=== PATIENT | female | born 1970 | race Two or more races ===

== ENCOUNTER 2024-06-13 16:30 | Outpatient (RCR) | payer MEDICAID, SELFPAY ==
--- NOTE | 2024-05-27 09:14 | PTNOTE_ITS ---
PT OP Initial Eval Patient Information Outpatient Physical Therapy Treatment Date: 05/27/24 Visit Reasons: low back pain Medical Diagnosis: M54.5 M54.15 Treatment Dx #1: LBP with radiculopathy Start of Care: 05/27/24 Date of Onset: 10/2023 Smoking Status Smoking Status: Never smoker Initial Assessment Subjective: Pt is 53 yr old female who reports onset of LBP that runs to the L LE after colonoscopy in October. Increased pain with bending and getting up, lifting and at night in bed. She does HH chores with rest breaks every 30 mins and pain. 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 Trunk ArOM: ? B SB 50% of normal with pain to the L ? Extension: 20% with pain around L4-5, L5-S1 ? Flexion: 10 from floor with LBP ? B rotation: 60% with pain ? TTP: moderate paraspinals L5-S1 ? Neuro: L SLR: positive Assessment: ? Pt presents with trunk flexion sensitivity and overlying myofascial pain ? and TTP around L5-S1 consistent with ? lower lumbar disc bulge(s) with L LE radiculopathy. Pt requires skilled therapy in order to decrease ? pain and improve sitting/standing tolerance and has fair rehab potential. Eval ?followed by HEP printout.Pt may benefit from further diagnostic imaging such as MRI of L/S. Short Term and [employer] Goals ? 1. Ind with HEP ? 2. Less LBP with getting out of a chair x5 with <=3/10 LBP ? 3. Decreased lower paraspinal TTP from mod to min 4. Improved HH chore tolerance to at least 30 minutes with <=3/10 LBP and no ?increase in LE ssx ? Treatment Plan 1. Manual therapy ? 2. Therex ? 3. Modalities as indicated, moist heat, ice, estim, mechanical traction Frequency and Duration: 2x a week for 6 Rx sessions plus the evaluation Certification Dates: 05/27/24 to 08/24/24 Procedure Charges OP PT Eval Mod Complex 30 minutes: Yes
--- NOTE | 2024-06-04 17:45 | PT.ODAYNRPT ---
PT Outpatient Daily Note OP Daily Note Outpatient Physical Therapy Treatment Date: 06/04/24 Visit Reasons: low back pain Subjective: Same as time of evaluation Objective: See F/S for therex Assessment: Good demo of prone extension therex with low pain Plan: Continue per POC Length of Time (minutes) of Treatment: 30 Minutes Procedure Charges Therapeutic Exercise 30 minutes: Yes
--- NOTE | 2024-06-06 16:44 | PT.ODAYNRPT ---
PT Outpatient Daily Note OP Daily Note Outpatient Physical Therapy Treatment Date: 06/06/24 Visit Reasons: low back pain Subjective: Pt reports LBP is worse today, went to the doctor where she was supposed to have a procedure but they did not put her to sleep and pt had a hard time. Pt says her back is really hurting from trying to have poppy procedure done. Objective: Please see flow sheet for ther ex list. Assessment: Regressed interventions to accommodate reported pain. Plan: assess response to treatment. Length of Time (minutes) of Treatment: 30 Minutes Procedure Charges Therapeutic Exercise 30 minutes: Yes
--- NOTE | 2024-06-11 16:25 | PT.ODAYNRPT ---
PT Outpatient Daily Note OP Daily Note Outpatient Physical Therapy Treatment Date: 06/11/24 Visit Reasons: low back pain Subjective: Continued LBP Objective: See F/S for therex Assessment: Good demo of prone extension therex with low pain Plan: Continue per POC Length of Time (minutes) of Treatment: 30 Minutes Procedure Charges Therapeutic Exercise 30 minutes: Yes
--- NOTE | 2024-06-13 18:20 | PT.ODAYNRPT ---
PT Outpatient Daily Note OP Daily Note Outpatient Physical Therapy Treatment Date: 06/13/24 Visit Reasons: low back pain Subjective: Continued LBP Objective: See F/S for therex Assessment: Good demo of prone extension therex with low pain Plan: Continue per POC Length of Time (minutes) of Treatment: 30 Minutes Procedure Charges Therapeutic Exercise 30 minutes: Yes
== END 2024-06-19 23:59 | disposition home or self-care (01) ==
LOC: CPTX 16:30
PROVIDERS: PCP Physician Assistant; Referring Provider Physician Assistant; Visit Provider Physician Assistant
DX: M54.17 Radiculopathy, lumbosacral region (principal); I10 Essential (primary) hypertension
CPT/HCPCS: 97110; 97162

== ENCOUNTER → 2024-06-20 | Outpatient (CLI) | payer MEDICAID, SELFPAY ==
--- NOTE | 2024-06-20 11:00 | XR_ITS ---
Examination: Screening digital mammography, bilateral Computer aided detection 3-D breast Tomosynthesis, bilateral Date and time of exam: June 20, 2024 1035 hours Compared to mammograms dating to July 15, 2020 Indication: Screening Technique: Nonmagnified MLO, CC views of the breasts to been obtained, reconstructed from 3-D Tomosynthesis images. R2 computer aided detection program utilized for evaluation of suspicious masses and/or abnormal calcifications. 3-D Tomosynthesis images obtained. Findings: The breasts are heterogeneously dense, which may obscure small masses Benign calcifications. No interval suspicious masses Impression: BI-RADS category II: Benign Findings. Recommend 1 year follow-up mammogram.
== END | disposition home or self-care (01) ==
LOC: CDIM 10:28
PROVIDERS: Referring Provider Physician Assistant; Visit Provider Physician Assistant
DX: Z12.31 Encounter for screening mammogram for malignant neoplasm of breast (principal); R92.323 Mammographic fibroglandular density, bilateral breasts; R92.1 Mammographic calcification found on diagnostic imaging of breast
CPT/HCPCS: 77063; 77067

== ENCOUNTER 2024-06-25 15:30 | Outpatient (RCR) | payer MEDICAID, SELFPAY ==
--- NOTE | 2024-06-20 10:30 | PT.ODAYNRPT ---
PT Outpatient Daily Note OP Daily Note Outpatient Physical Therapy Treatment Date: 06/20/24 Visit Reasons: Back pain Subjective: Pt reports LBP is worse today c/o 9/10 pain. Pt mentioend yesterday she can barely move and had a really tough time getting out of bed. Objective: Please see flow sheet for ther ex list. Assessment: Regressed interventions to accommodate reported pain. Pt ambulating with less arm swing and decrease nidia. Plan: Assess for note. Length of Time (minutes) of Treatment: 30 Minutes Procedure Charges Therapeutic Exercise 30 minutes: Yes
--- NOTE | 2024-06-25 15:51 | PT.ODS1RPT ---
PT OP Progress/Discharge Note Date of Service: 06/25/24 Progress Note/DC Note Progress Note/Discharge Note: DC Note Patient Information Visit Reasons: Back pain Service Continue Service or Discharge: Discharge Discharge Date: 06/25/24 Status Subjective: Pt has good days and bad days with more pain than others. Not sure if she has improved since starting therapy. She does HH chores for about 20 mins and then sits to rest. Objective: Trunk AROM: FB: 10 from floor Extension: 40% of full TTP: min/mod TTP of lumbar paraspinals Assessment: Pt has attended the eval and 07/26 Rx sessions with limited progress with therapy goals due to continued LBP. Pt has mod to min TTP of the L/S with the L side moderately TTP. She can get out of a chair today with min LBP x3 which is close to meeting the goal of 5x. She doesn't remember the HEP exercises very well after reminders so she was given another printout. Plan: D/C with HEP Procedure Charges Therapeutic Exercise 30 minutes: Yes
== END 2024-07-20 23:59 | disposition home or self-care (01) ==
LOC: CPTX 15:30
PROVIDERS: PCP Physician Assistant; Referring Provider Physician Assistant; Visit Provider Physician Assistant
DX: M54.17 Radiculopathy, lumbosacral region (principal); I10 Essential (primary) hypertension
CPT/HCPCS: 97110

== ENCOUNTER → 2024-08-31 | Outpatient (CLI) | payer MEDICAID, SELFPAY ==
--- NOTE | 2024-08-31 07:30 | XR_ITS ---
Examination: MRI lumbar spine without contrast Date and time of exam: August 31, 2024 0731 hrs. Indications: Low back pain radiating down the right leg beginning 10 minutes ago Technique: Multiple MRI axial and sagittal sections lumbar spine. Sagittal T2-weighted images, TR 3500, TE 118 T1 weighted transverse sections, TR 688 T8.5, T2-weighted sagittal sections T1 weighted sagittal sections TR 621, TE 30 T2 axial sections, TR 4, 190, TE 84. Findings: Adequate alignment lumbar vertebral bodies No lumbar vertebral body fracture Diffuse lumbar disc desiccation Transitional L5 vertebral body L5-S1 no disc protrusion L4-L5 2 mm central lumbar disc bulge L3-L4 no disc protrusion L2-L3 no disc protrusion L1-L2 no disc protrusion Impression: Diffuse lumbar degenerative disc disease No significant acquired spinal stenosis
== END | disposition home or self-care (01) ==
LOC: SMRI 07:00
PROVIDERS: PCP Physician Assistant; Referring Provider Physician Assistant; Visit Provider Physician Assistant
DX: M51.360 Other intervertebral disc degeneration, lumbar region with discogenic back pain only (principal)
CPT/HCPCS: 72148